=== PATIENT | female | born 1940 | race Hispanic/Latino ===

== ENCOUNTER 2017-07-18 16:33 | Inpatient (IN) | payer OTHER, MEDICARE ==
[~2017-07-18] VITALS: Ht 157.5 cm; Wt 64.9 kg
[2017-07-18] VITALS (7 sets, daily range): BP systolic 63–173; BP diastolic 38–60
[~2017-07-18 16:33] MED LIST: APIX5TAB PO; ASPI-1005 PO; CA C1TAB93 PO; CARV25TA PO; DIGO125T87 PO; DULO30CA51 PO; FERR-82 PO; FURO20TA4 PO; LEVO50TA11 PO; METF500T6 PO; METO5TAB2 PO; MONT10TA24 PO; MULT-1203 PO; OXYB5TAB PO; PANT40TA25 PO; PRAV40TA3 PO; PREG50 PO; ROCURONIUM BROMIDE 10MG/1ML 5ML VL IV ONE; SACU1TAB PO; TRAM-355 PO
[2017-07-18 17:03] LABS: BASOPHILS % (AUTO) 0.5 % (0.0-5.0); EOSINOPHILS % (AUTO) 3.8 % (0.0-8.0); HEMATOCRIT 34.6 % (36-48); LYMPHOCYTES % (AUTO) 23.5 % (21.0-51.0); MEAN CORPUSCULAR HEMOGLOBIN 29.4 pg (27.0-33.0); MEAN CORPUSCULAR VOLUME 91.9 fL (79-99); MONOCYTES % (AUTO) 5.3 % (3.0-13.0); NEUTROPHILS % (AUTO) 66.9 % (40.0-77.0); PLATELET COUNT (AUTO) 310 K/uL (130-400); RED BLOOD CELL COUNT(AUTO) 3.77 MIL/uL (4.00-5.50); RED CELL DISTRIBUTION WIDTH 14.3 % (11.0-15.5); WHITE BLOOD COUNT (AUTO) 17.3 K/uL (4.8-10.8)
[2017-07-18] MEDS ORDERED: ACETAMINOPHEN 650 MG SUPPOSITORY RC ONE (17:03)
[2017-07-18] MEDS ORDERED: CEFTRIAXONE SODIUM 1 GM ONE (17:03)
[2017-07-18] MEDS ORDERED: PROPOFOL 1000 MG/100 ML 100 ML IV ONE (17:12)
[2017-07-18 17:13] LABS: CARBON DIOXIDE 30 mmol/L (21-32); CHLORIDE 99 mmol/L (101-111); CREATININE 1.5 mg/dL (0.5-1.5); GLOMERULAR FILTR. RATE CALC 36 mL/min (>60); GLUCOSE,RANDOM 224 mg/dL (70-105); POTASSIUM 5.2 mmol/L (3.5-5.1); SODIUM SERUM 137 mmol/L (136-145); UREA NITROGEN, BLOOD 26 mg/dL (7-18)
[2017-07-18 17:26] LABS: ALANINE AMINOTRANSFERASE 31 U/L (12-78); ALBUMIN 3.2 g/dL (3.5-5.0); ASPARTATE AMINOTRANSFERASE 27 U/L (10-37); BILIRUBIN,TOTAL 0.3 mg/dL (0.2-1.0); CREATINE KINASE MB < 0.5 ng/mL (0.5-3.6); CREATINE KINASE, TOTAL 60 U/L (21-232); TOTAL PROTEIN, SERUM 7.7 g/dL (6.0-8.3)
[2017-07-18 17:29] LABS: B-TYPE NATRIURETIC PEPTIDE 441 pg/mL (0-100)
[2017-07-18] MEDS ORDERED: NOREPINEPHRINE BITARTRATE 1 MG/1 ML ML IV ONE ×2 (17:36→23:47)
[2017-07-18 17:38] LABS: ABG BASE EXCESS -1.6 mmol/L (-2.0-3.0); ABG HCO3 24.9 mmol/L (21.0-28.0); ABG OXYGEN SATURATION 99.9 % (95.0-99.0); ABG PCO2 48 mmHg (32-45)
[2017-07-18] MEDS ORDERED: AZITHROMYCIN 500MG+NS 250ML 250 ML IV ONE (17:46)
[2017-07-18] MEDS ORDERED: FENTANYL CITRATE PF 50 MCG/1 ML 5ML AMP IV ONE (18:16)
[2017-07-18] MEDS ORDERED: FENTANYL CITRATE PF 50 MCG/1 ML 2ML VIAL ONE (18:19)
[2017-07-18 18:49] LABS: APPEARANCE,URINE Cloudy (CLEAR); BILIRUBIN,URINE Negative (NEGATIVE); COLOR,URINE Yellow (YELLOW); GLUCOSE, URINE (UA) Negative (NEGATIVE); KETONES,URINE Negative (NEGATIVE); LEUKOCYTE ESTERASE ,URINE Moderate (NEGATIVE); NITRATE,URINE Negative (NEGATIVE); OCCULT BLOOD,URINE Large (NEGATIVE); PROTEIN,URINE POS 1+ (NEGATIVE); UROBILINOGEN,URINE 0.2 mg/dL (0.2-1.0)
[2017-07-18 18:58] LABS: BACTERIA,URINE Many /HPF (None Seen)
[2017-07-18 18:59] LABS: HYALINE CASTS, URINE 0-1 /LPF (0-1 /LPF)
[2017-07-18] MEDS ORDERED: FENTANYL 2500MCG+NS 250ML 250 ML IV SCH (19:15)
[2017-07-18 19:41] LABS: ABG BASE EXCESS -7.2 mmol/L (-2.0-3.0); ABG HCO3 18.7 mmol/L (21.0-28.0); ABG OXYGEN SATURATION 99.1 % (95.0-99.0); ABG PCO2 39 mmHg (32-45)
[2017-07-18] MEDS ORDERED: ONDANSETRON HCL 4 MG/2 ML VIAL IVP PRN (21:00)
[2017-07-18] MEDS ORDERED: ACETAMINOPHEN 325 MG TAB PO PRN (21:00)
[2017-07-18] MEDS ORDERED: VANCOMYCIN PROTOCOL PER PHARMACY IV SCH (21:00)
[2017-07-18] MEDS ORDERED: NOREPINEPHRINE 4MG/NS 250ML 250 ML IV SCH (21:15)
[2017-07-18] MEDS ORDERED: COMPOUND IV REFRIGERATED 1 EACH IVSOLN MISC PRN (21:15)
[2017-07-18] MEDS ORDERED: GLUCAGON 1MG KIT 1 MG ML IM PRN (21:30)
[2017-07-18] MEDS ORDERED: LIDOCAINE HCL-MPF 1% 2ML VIAL IJ PRN (21:30)
[2017-07-18] MEDS ORDERED: DEXTROSE 50%-WATER 50 ML DISP.SYRIN IV PRN (21:30)
[2017-07-18] MEDS ORDERED: VANCOMYCIN 1GM+NS 250ML 250 ML IV ONE (21:58)
[2017-07-18] MEDS ORDERED: SODIUM BICARB 50MEQ 50ML VIAL ONE (21:58)
[2017-07-18] MEDS ORDERED: SODIUM CHLORIDE 0.9% 1000ML 1,000 ML IV ONE (21:59)
[2017-07-18] MEDS ORDERED: PHENTOLAMINE MESYLATE 5 MG VIAL SQ ONE (22:00)
[2017-07-18] MEDS ORDERED: SODIUM CHLORIDE 0.9% 10 ML VIAL ONE (23:40)
[2017-07-18] MEDS ORDERED: SODIUM CHLORIDE 0.9% 250 ML IV ONE (23:48)
[2017-07-18] MEDS: ZOSYN 3.375GM+NS 50ML 50 ML IV SCH (23:52)
[2017-07-19] VITALS (24 sets, daily range): BP systolic 94–142; BP diastolic 30–64
[2017-07-19] MEDS: INSULIN R NPO SSI SQ SCH ×5 (00:21→23:26)
[2017-07-19 00:33] LABS: ABG BASE EXCESS -4.3 mmol/L (-2.0-3.0); ABG HCO3 21.8 mmol/L (21.0-28.0); ABG OXYGEN SATURATION 99.2 % (95.0-99.0); ABG PCO2 44 mmHg (32-45)
[2017-07-19] MEDS: IPRATROPIUM/ALBUTEROL SULFATE 3 ML SOLUTION IH SCH ×4 (00:43→18:31)
[2017-07-19] MEDS ORDERED: VANCOMYCIN 1.5 GM in SODIUM CHLORIDE 0.9% 250 ML IV ONE (01:00)
[2017-07-19 01:17] LABS: TROPONIN I 5.08 ng/mL (0.00-0.06)
[2017-07-19] MEDS ORDERED: SODIUM CHLORIDE 0.9% 1000ML 1,000 ML IV ONE (03:17)
[2017-07-19] MEDS: SODIUM CHLORIDE 0.9% 1000ML 1,000 ML IV SCH ×3 (03:45→18:17)
[2017-07-19] MEDS: ZOSYN 3.375GM+NS 50ML 50 ML IV SCH ×3 (04:36→20:19)
[2017-07-19 04:43] LABS: ABG BASE EXCESS -4.4 mmol/L (-2.0-3.0); ABG HCO3 20.4 mmol/L (21.0-28.0); ABG OXYGEN SATURATION 97.6 % (95.0-99.0); ABG PCO2 37 mmHg (32-45)
[2017-07-19 04:50] LABS: HEMATOCRIT 28.6 % (36-48); MEAN CORPUSCULAR HEMOGLOBIN 29.2 pg (27.0-33.0); MEAN CORPUSCULAR HGB CONC 32.7 g/dL (32.0-36.0); MEAN CORPUSCULAR VOLUME 89.2 fL (79-99); PLATELET COUNT (AUTO) 214 K/uL (130-400); RED BLOOD CELL COUNT(AUTO) 3.21 MIL/uL (4.00-5.50); RED CELL DISTRIBUTION WIDTH 14.4 % (11.0-15.5); WHITE BLOOD COUNT (AUTO) 21.5 K/uL (4.8-10.8)
[2017-07-19 05:00] LABS: BAND NEUTROPHILS % (MANUAL) 24 % (0-2); LYMPHOCYTES % (MANUAL) 15 % (22-44); MAN.DIFF COMMENT-IMPRESSION MANUAL DIFFERENTIAL; MONOCYTES % (MANUAL) 9 % (2-9); SEGMENTED NEUTROPHILS % 52 % (40-70)
[2017-07-19 05:01] LABS: PLATELET MORPHOLOGY COMMENT ADEQUATE
[2017-07-19 05:19] LABS: ALBUMIN 2.2 g/dL (3.5-5.0); BILIRUBIN,TOTAL 0.4 mg/dL (0.2-1.0); CREATINE KINASE MB 4.4 ng/mL (0.5-3.6); CREATININE 1.6 mg/dL (0.5-1.5); POTASSIUM 5.1 mmol/L (3.5-5.1); THYROID STIMULATING HORMONE 1.58 uIU/mL (0.36-3.74); TOTAL PROTEIN, SERUM 5.6 g/dL (6.0-8.3)
[2017-07-19 05:23] LABS: TROPONIN I 5.53 ng/mL (0.00-0.06)
[2017-07-19 06:06] LABS: B-TYPE NATRIURETIC PEPTIDE 993 pg/mL (0-100)
[2017-07-19] MEDS ORDERED: COMPOUND PO MISCELLANEOUS 1 EACH MISC MISC PRN (08:00)
[2017-07-19] MEDS ORDERED: CLOPIDOGREL BISULFATE 300 MG TAB PO SCH (08:30)
[2017-07-19] MEDS ORDERED: OSELTAMIVIR PHOSPHATE 75 MG CAP PO SCH (09:00)
[2017-07-19] MEDS ORDERED: ASPIRIN 325MG EC TAB 325 MG TABLET.DR PO SCH (09:00)
[2017-07-19] MEDS ORDERED: ENOXAPARIN SODIUM 30 MG/0.3 ML SQ SCH (09:00)
[2017-07-19] MEDS: FUROSEMIDE 10 MG/ML 2ML VIAL IV SCH ×2 (09:06→20:18)
[2017-07-19] MEDS: FAMOTIDINE/PF 20 MG/2 ML VIAL IV SCH (09:08)
[2017-07-19] MEDS: ENOXAPARIN SODIUM 80 MG/0.8 ML SQ SCH (09:15)
[2017-07-19] MEDS: PROPOFOL 1000 MG/100 ML 100 ML IV PRN ×2 (12:56→22:54)
[2017-07-19 13:01] LABS: INR 1.12 (0.85-1.15); PARTIAL THROMBOPLASTIN TIME 39.8 SEC (26.3-35.5); PROTHROMBIN TIME 11.7 SEC (9.6-11.6)
[2017-07-19 13:03] LABS: CREATINE KINASE MB 3.4 ng/mL (0.5-3.6)
[2017-07-19 13:06] LABS: TROPONIN I 4.72 ng/mL (0.00-0.06)
[2017-07-19] MEDS: ASPIRIN 81MG TAB.CHEW NG SCH (14:43)
[2017-07-19] MEDS: OSELTAMIVIR PHOSPHATE 300 MG, COMPOUNDING VEHICLE SF NO.9 50 ML PO SCH ×4 (14:43→20:20)
[2017-07-19] MEDS: VANCOMYCIN 750MG + NS 250 ML IV SCH ×2 (19:19)
[2017-07-20] VITALS (24 sets, daily range): BP systolic 111–174; BP diastolic 30–80
[2017-07-20] MEDS: IPRATROPIUM/ALBUTEROL SULFATE 3 ML SOLUTION IH SCH ×5 (00:42→23:37)
[2017-07-20] MEDS: SODIUM CHLORIDE 0.9% 1000ML 1,000 ML IV SCH (04:06)
[2017-07-20] MEDS: ZOSYN 3.375GM+NS 50ML 50 ML IV SCH ×3 (04:07→20:31)
[2017-07-20 04:08] LABS: MEAN CORPUSCULAR HEMOGLOBIN 29.8 pg (27.0-33.0); MEAN CORPUSCULAR HGB CONC 33.5 g/dL (32.0-36.0); MEAN CORPUSCULAR VOLUME 89.2 fL (79-99); NUCLEATED RED BLOOD CELLS 0.1 % (0.0-0.19); PLATELET COUNT (AUTO) 171 K/uL (130-400); RED CELL DISTRIBUTION WIDTH 14.7 % (11.0-15.5)
[2017-07-20 04:20] LABS: CREATININE 1.7 mg/dL (0.5-1.5); POTASSIUM 3.6 mmol/L (3.5-5.1)
[2017-07-20 04:39] LABS: B-TYPE NATRIURETIC PEPTIDE 411 pg/mL (0-100)
[2017-07-20 05:42] LABS: ABG BASE EXCESS -1.9 mmol/L (-2.0-3.0); ABG HCO3 22.5 mmol/L (21.0-28.0); ABG OXYGEN SATURATION 98.3 % (95.0-99.0); ABG PCO2 38 mmHg (32-45)
[2017-07-20] MEDS: INSULIN R NPO SSI SQ SCH ×4 (05:44→23:50)
[2017-07-20] MEDS ORDERED: CLOPIDOGREL BISULFATE 75 MG TAB PO SCH (09:00)
[2017-07-20] MEDS: FAMOTIDINE/PF 20 MG/2 ML VIAL IV SCH (09:18)
[2017-07-20] MEDS: ASPIRIN 81MG TAB.CHEW NG SCH (09:18)
[2017-07-20] MEDS: FUROSEMIDE 10 MG/ML 2ML VIAL IV SCH ×2 (09:18→20:30)
[2017-07-20] MEDS: ENOXAPARIN SODIUM 80 MG/0.8 ML SQ SCH (09:20)
[2017-07-20] MEDS: OSELTAMIVIR PHOSPHATE 300 MG, COMPOUNDING VEHICLE SF NO.9 50 ML PO SCH ×4 (09:25→21:02)
[2017-07-20] MEDS: PROPOFOL 1000 MG/100 ML 100 ML IV PRN ×3 (10:47→23:32)
[2017-07-20] MEDS: LEVOFLOXACIN 500 MG/D5W 100 ML 100 ML IV SCH (17:19)
[2017-07-20] MEDS: VANCOMYCIN 750MG + NS 250 ML IV SCH ×2 (17:19)
[2017-07-20] MEDS: POTASSIUM CHLORIDE 20MEQ/100ML 100 ML IV PRN (17:36)
[2017-07-21] VITALS (22 sets, daily range): BP systolic 133–194; BP diastolic 48–86
[2017-07-21] MEDS: PROPOFOL 1000 MG/100 ML 100 ML IV PRN ×2 (03:57→11:16)
[2017-07-21 04:14] LABS: MEAN CORPUSCULAR HEMOGLOBIN 29.4 pg (27.0-33.0); MEAN CORPUSCULAR HGB CONC 33.5 g/dL (32.0-36.0); MEAN CORPUSCULAR VOLUME 87.7 fL (79-99); PLATELET COUNT (AUTO) 194 K/uL (130-400); RED BLOOD CELL COUNT(AUTO) 3.08 MIL/uL (4.00-5.50); RED CELL DISTRIBUTION WIDTH 14.3 % (11.0-15.5); WHITE BLOOD COUNT (AUTO) 7.8 K/uL (4.8-10.8)
[2017-07-21] MEDS: ZOSYN 3.375GM+NS 50ML 50 ML IV SCH ×3 (05:02→21:59)
[2017-07-21 05:11] LABS: CREATININE 1.4 mg/dL (0.5-1.5); POTASSIUM 3.4 mmol/L (3.5-5.1)
[2017-07-21] MEDS ORDERED: FUROSEMIDE 10 MG/ML 4ML VIAL IV ONE ×2 (06:00→21:00)
[2017-07-21] MEDS: INSULIN R NPO SSI SQ SCH ×3 (06:00→18:00)
[2017-07-21] MEDS: IPRATROPIUM/ALBUTEROL SULFATE 3 ML SOLUTION IH SCH ×3 (07:15→19:17)
[2017-07-21] MEDS: ASPIRIN 81MG TAB.CHEW NG SCH (08:14)
[2017-07-21] MEDS: FAMOTIDINE/PF 20 MG/2 ML VIAL IV SCH (08:14)
[2017-07-21] MEDS: FUROSEMIDE 10 MG/ML 2ML VIAL IV SCH ×2 (08:14→18:46)
[2017-07-21] MEDS: ENOXAPARIN SODIUM 80 MG/0.8 ML SQ SCH (08:16)
[2017-07-21] MEDS: OSELTAMIVIR PHOSPHATE 300 MG, COMPOUNDING VEHICLE SF NO.9 50 ML PO SCH ×4 (09:00→21:00)
[2017-07-21] MEDS: LEVOFLOXACIN 500 MG/D5W 100 ML 100 ML IV SCH (19:05)
[2017-07-21] MEDS: VANCOMYCIN 750MG + NS 250 ML IV SCH ×2 (19:07)
[2017-07-22] VITALS (24 sets, daily range): BP systolic 108–196; BP diastolic 45–78
[2017-07-22] MEDS: IPRATROPIUM/ALBUTEROL SULFATE 3 ML SOLUTION IH SCH ×4 (01:05→18:09)
[2017-07-22 03:55] LABS: HEMATOCRIT 26.6 % (36-48); MEAN CORPUSCULAR HGB CONC 35.7 g/dL (32.0-36.0); MEAN CORPUSCULAR VOLUME 86.8 fL (79-99); PLATELET COUNT (AUTO) 188 K/uL (130-400); RED BLOOD CELL COUNT(AUTO) 3.07 MIL/uL (4.00-5.50); RED CELL DISTRIBUTION WIDTH 14.2 % (11.0-15.5); WHITE BLOOD COUNT (AUTO) 5.8 K/uL (4.8-10.8)
[2017-07-22 04:03] LABS: CREATININE 1.3 mg/dL (0.5-1.5)
[2017-07-22 04:09] LABS: POTASSIUM 2.9 mmol/L (3.5-5.1)
[2017-07-22] MEDS: POTASSIUM CHLORIDE 20MEQ/100ML 100 ML IV PRN ×4 (04:34→20:10)
[2017-07-22] MEDS: INSULIN R NPO SSI SQ SCH ×4 (06:00→18:00)
[2017-07-22] MEDS: ZOSYN 3.375GM+NS 50ML 50 ML IV SCH ×3 (06:01→20:11)
[2017-07-22] MEDS: FUROSEMIDE 10 MG/ML 2ML VIAL IV SCH ×2 (08:13→20:10)
[2017-07-22] MEDS: FAMOTIDINE/PF 20 MG/2 ML VIAL IV SCH (08:13)
[2017-07-22] MEDS: LEVOTHYROXINE 50 MCG TABLET PO SCH (08:13)
[2017-07-22] MEDS: ASPIRIN 81MG TAB.CHEW NG SCH (08:17)
[2017-07-22] MEDS: CARVEDILOL 12.5 MG TABLET PO SCH ×2 (08:17→20:11)
[2017-07-22] MEDS: OSELTAMIVIR PHOSPHATE 300 MG, COMPOUNDING VEHICLE SF NO.9 50 ML PO SCH ×4 (08:18→20:12)
[2017-07-22] MEDS: ENOXAPARIN SODIUM 40 MG/0.4 ML SYRINGE SQ SCH (08:20)
[2017-07-22] MEDS: HYDRALAZINE HCL 20 MG/ML VIAL IV PRN (09:37)
[2017-07-22] MEDS: PROPOFOL 1000 MG/100 ML 100 ML IV PRN ×3 (13:52→22:31)
[2017-07-22] MEDS: LEVOFLOXACIN 500 MG/D5W 100 ML 100 ML IV SCH (16:53)
[2017-07-22] MEDS: VANCOMYCIN 750MG + NS 250 ML IV SCH ×2 (18:38)
[2017-07-23] VITALS (24 sets, daily range): BP systolic 125–192; BP diastolic 23–89
[2017-07-23] MEDS: IPRATROPIUM/ALBUTEROL SULFATE 3 ML SOLUTION IH SCH ×5 (00:24→23:42)
[2017-07-23 04:03] LABS: HEMATOCRIT 27.3 % (36-48); MEAN CORPUSCULAR HEMOGLOBIN 29.2 pg (27.0-33.0); MEAN CORPUSCULAR HGB CONC 33.7 g/dL (32.0-36.0); MEAN CORPUSCULAR VOLUME 86.6 fL (79-99); PLATELET COUNT (AUTO) 198 K/uL (130-400); RED BLOOD CELL COUNT(AUTO) 3.15 MIL/uL (4.00-5.50); RED CELL DISTRIBUTION WIDTH 14.1 % (11.0-15.5); WHITE BLOOD COUNT (AUTO) 7.3 K/uL (4.8-10.8)
[2017-07-23 04:14] LABS: CREATININE 1.3 mg/dL (0.5-1.5); POTASSIUM 3.4 mmol/L (3.5-5.1)
[2017-07-23] MEDS: ZOSYN 3.375GM+NS 50ML 50 ML IV SCH ×3 (04:58→20:15)
[2017-07-23] MEDS: POTASSIUM CHLORIDE 20MEQ/100ML 100 ML IV PRN (04:58)
[2017-07-23] MEDS: PROPOFOL 1000 MG/100 ML 100 ML IV PRN (05:07)
[2017-07-23] MEDS: INSULIN R NPO SSI SQ SCH ×4 (06:00→18:00)
[2017-07-23] MEDS: ENOXAPARIN SODIUM 40 MG/0.4 ML SYRINGE SQ SCH (08:15)
[2017-07-23] MEDS: FUROSEMIDE 10 MG/ML 2ML VIAL IV SCH ×2 (08:15→20:15)
[2017-07-23] MEDS: ASPIRIN 81MG TAB.CHEW NG SCH (08:16)
[2017-07-23] MEDS: LEVOTHYROXINE 50 MCG TABLET PO SCH (08:16)
[2017-07-23] MEDS: FAMOTIDINE/PF 20 MG/2 ML VIAL IV SCH (08:16)
[2017-07-23] MEDS: CARVEDILOL 12.5 MG TABLET PO SCH ×2 (08:16→20:14)
[2017-07-23] MEDS: POTASSIUM CHLORIDE 10% ELIXIR 20 MEQ/15 ML UDCUP PO PRN (11:27)
[2017-07-23 11:48] LABS: ABG BASE EXCESS 2.7 mmol/L (-2.0-3.0); ABG HCO3 26.2 mmol/L (21.0-28.0); ABG OXYGEN SATURATION 98.2 % (95.0-99.0); ABG PCO2 37 mmHg (32-45)
[2017-07-23] MEDS: LEVOFLOXACIN 500 MG/D5W 100 ML 100 ML IV SCH (16:05)
[2017-07-23] MEDS: OSELTAMIVIR PHOSPHATE 300 MG, COMPOUNDING VEHICLE SF NO.9 50 ML PO SCH ×2 (16:13)
[2017-07-23] MEDS: VANCOMYCIN 750MG + NS 250 ML IV SCH ×2 (17:42)
[2017-07-23] MEDS: HYDRALAZINE HCL 20 MG/ML VIAL IV PRN (18:13)
[2017-07-23] MEDS: OSELTAMIVIR PHOSPHATE 75 MG CAP PO SCH (20:29)
[2017-07-24] VITALS (19 sets, daily range): BP systolic 121–172; BP diastolic 54–92
[2017-07-24] MEDS: ZOSYN 3.375GM+NS 50ML 50 ML IV SCH ×3 (04:50→22:22)
[2017-07-24] MEDS: INSULIN R NPO SSI SQ SCH ×4 (05:14→18:00)
[2017-07-24 05:19] LABS: HEMATOCRIT 28.7 % (36-48); MEAN CORPUSCULAR HEMOGLOBIN 29.9 pg (27.0-33.0); MEAN CORPUSCULAR HGB CONC 34.5 g/dL (32.0-36.0); MEAN CORPUSCULAR VOLUME 86.7 fL (79-99); PLATELET COUNT (AUTO) 217 K/uL (130-400); RED BLOOD CELL COUNT(AUTO) 3.31 MIL/uL (4.00-5.50); WHITE BLOOD COUNT (AUTO) 8.9 K/uL (4.8-10.8)
[2017-07-24 05:36] LABS: CREATININE 1.4 mg/dL (0.5-1.5); POTASSIUM 3.2 mmol/L (3.5-5.1)
[2017-07-24 05:43] LABS: BAND NEUTROPHILS % (MANUAL) 1 % (0-2); BASOPHILS % (MANUAL) 1 % (0-2); EOSINOPHILS % (MANUAL) 2 % (1-6); LYMPHOCYTES % (MANUAL) 14 % (22-44); MAN.DIFF COMMENT-IMPRESSION MANUAL DIFFERENTIAL; MONOCYTES % (MANUAL) 3 % (2-9); PLATELET MORPHOLOGY COMMENT ADEQUATE; SEGMENTED NEUTROPHILS % 79 % (40-70)
[2017-07-24] MEDS: IPRATROPIUM/ALBUTEROL SULFATE 3 ML SOLUTION IH SCH ×3 (05:56→19:46)
[2017-07-24] MEDS: ENOXAPARIN SODIUM 40 MG/0.4 ML SYRINGE SQ SCH (08:19)
[2017-07-24] MEDS: FUROSEMIDE 20 MG TABLET PO SCH ×2 (08:19→16:42)
[2017-07-24] MEDS: ASPIRIN 81MG TAB.CHEW NG SCH (08:19)
[2017-07-24] MEDS: LEVOTHYROXINE 50 MCG TABLET PO SCH (08:19)
[2017-07-24] MEDS: POTASSIUM CHLORIDE 10% ELIXIR 20 MEQ/15 ML UDCUP PO PRN ×2 (08:22→10:37)
[2017-07-24] MEDS: FAMOTIDINE/PF 20 MG/2 ML VIAL IV SCH (09:28)
[2017-07-24] MEDS: CARVEDILOL 12.5 MG TABLET PO SCH ×2 (10:52→22:14)
[2017-07-24] MEDS: LEVOFLOXACIN 500 MG/D5W 100 ML 100 ML IV SCH (16:42)
[2017-07-24] MEDS: VANCOMYCIN 750MG + NS 250 ML IV SCH ×2 (18:46)
[2017-07-24] MEDS: ACETYLCYSTEINE 20% 200MG/ML 4ML VIAL IH SCH (19:46)
[2017-07-24] MEDS: OSELTAMIVIR PHOSPHATE 75 MG CAP PO SCH (22:13)
[2017-07-25] MEDS: ACETYLCYSTEINE 20% 200MG/ML 4ML VIAL IH SCH ×4 (00:16→19:10)
[2017-07-25] MEDS: IPRATROPIUM/ALBUTEROL SULFATE 3 ML SOLUTION IH SCH ×5 (00:16→23:14)
[2017-07-25 03:56] VITALS: BP 142/58
[2017-07-25 05:09] LABS: HEMATOCRIT 28.1 % (36-48); MEAN CORPUSCULAR HEMOGLOBIN 29.4 pg (27.0-33.0); MEAN CORPUSCULAR HGB CONC 33.9 g/dL (32.0-36.0); MEAN CORPUSCULAR VOLUME 86.8 fL (79-99); NUCLEATED RED BLOOD CELLS 0.1 % (0.0-0.19); PLATELET COUNT (AUTO) 215 K/uL (130-400); RED BLOOD CELL COUNT(AUTO) 3.24 MIL/uL (4.00-5.50); RED CELL DISTRIBUTION WIDTH 13.8 % (11.0-15.5); WHITE BLOOD COUNT (AUTO) 8.4 K/uL (4.8-10.8)
[2017-07-25] MEDS: ZOSYN 3.375GM+NS 50ML 50 ML IV SCH (05:12)
[2017-07-25 05:44] LABS: CREATININE 1.4 mg/dL (0.5-1.5); POTASSIUM 3.4 mmol/L (3.5-5.1)
[2017-07-25] MEDS: INSULIN R NPO SSI SQ SCH ×4 (06:00→18:00)
[2017-07-25] MEDS: POTASSIUM CHLORIDE 20MEQ/100ML 100 ML IV PRN (06:40)
[2017-07-25 07:35] VITALS: BP 162/70
[2017-07-25] MEDS: LEVOTHYROXINE 50 MCG TABLET PO SCH ×2 (08:13→20:05)
[2017-07-25] MEDS ORDERED: CEFTRIAXONE 1GM/D5W 50ML 50 ML IV SCH (08:45)
[2017-07-25] MEDS: FAMOTIDINE/PF 20 MG/2 ML VIAL IV SCH (09:33)
[2017-07-25] MEDS: CEFTRIAXONE SODIUM 1 GM IVP SCH (09:34)
[2017-07-25] MEDS: CARVEDILOL 12.5 MG TABLET PO SCH ×2 (09:36→20:04)
[2017-07-25] MEDS: ENOXAPARIN SODIUM 40 MG/0.4 ML SYRINGE SQ SCH (09:37)
[2017-07-25] MEDS: FUROSEMIDE 20 MG TABLET PO SCH ×2 (09:37→16:21)
[2017-07-25] MEDS: ASPIRIN 81MG TAB.CHEW NG SCH (09:37)
[2017-07-25 11:50] VITALS: BP 177/73
[2017-07-25] MEDS: LEVOFLOXACIN 500 MG/D5W 100 ML 100 ML IV SCH (16:20)
[2017-07-25 16:50] VITALS: BP 178/82
[2017-07-25 19:56] VITALS: BP 171/76
[2017-07-25 23:49] VITALS: BP 151/64
[2017-07-26] VITALS (7 sets, daily range): BP systolic 140–164; BP diastolic 65–77
[2017-07-26 04:44] LABS: HEMATOCRIT 27.4 % (36-48); MEAN CORPUSCULAR HEMOGLOBIN 30.1 pg (27.0-33.0); MEAN CORPUSCULAR HGB CONC 34.3 g/dL (32.0-36.0); MEAN CORPUSCULAR VOLUME 87.9 fL (79-99); NUCLEATED RED BLOOD CELLS 0.1 % (0.0-0.19); PLATELET COUNT (AUTO) 240 K/uL (130-400); RED BLOOD CELL COUNT(AUTO) 3.11 MIL/uL (4.00-5.50); RED CELL DISTRIBUTION WIDTH 14.1 % (11.0-15.5)
[2017-07-26 04:55] LABS: CREATININE 1.3 mg/dL (0.5-1.5); POTASSIUM 3.8 mmol/L (3.5-5.1)
[2017-07-26] MEDS: INSULIN R NPO SSI SQ SCH ×4 (06:00→18:00)
[2017-07-26] MEDS: IPRATROPIUM/ALBUTEROL SULFATE 3 ML SOLUTION IH SCH ×4 (07:38→23:44)
[2017-07-26] MEDS ORDERED: DEXTROSE 5 %-0.45 % NACL 1,000 ML IV SCH (08:03)
[2017-07-26] MEDS: CEFTRIAXONE SODIUM 1 GM IVP SCH (08:26)
[2017-07-26] MEDS: FAMOTIDINE/PF 20 MG/2 ML VIAL IV SCH (08:26)
[2017-07-26] MEDS ORDERED: LIDOCAINE HCL 2% VISCOUS 15 ML UDCUP PO SCH (09:00)
[2017-07-26] MEDS ORDERED: LIDOCAINE HCL 2% VISCOUS 15 ML UDCUP ONE (11:14)
[2017-07-26] MEDS ORDERED: DIATR MEGLU/DIATRIZOATE SODIUM 30 ML BOTTLE PO ONE (13:54)
[2017-07-26] MEDS: CARVEDILOL 25 MG TABLET PO SCH ×2 (14:19→19:53)
[2017-07-26] MEDS: ASPIRIN 81MG TAB.CHEW NG SCH (14:19)
[2017-07-26] MEDS: FUROSEMIDE 20 MG TABLET PO SCH ×2 (14:20→16:33)
[2017-07-26] MEDS: ENOXAPARIN SODIUM 40 MG/0.4 ML SYRINGE SQ SCH (14:21)
[2017-07-26] MEDS: LEVOFLOXACIN 500 MG/D5W 100 ML 100 ML IV SCH (16:33)
[2017-07-27 03:44] VITALS: BP 162/69
[2017-07-27 04:35] LABS: HEMATOCRIT 27.5 % (36-48); MEAN CORPUSCULAR HEMOGLOBIN 29.1 pg (27.0-33.0); MEAN CORPUSCULAR HGB CONC 33.2 g/dL (32.0-36.0); MEAN CORPUSCULAR VOLUME 87.5 fL (79-99); NUCLEATED RED BLOOD CELLS 0.1 % (0.0-0.19); PLATELET COUNT (AUTO) 277 K/uL (130-400); RED BLOOD CELL COUNT(AUTO) 3.15 MIL/uL (4.00-5.50); RED CELL DISTRIBUTION WIDTH 14.1 % (11.0-15.5); WHITE BLOOD COUNT (AUTO) 7.9 K/uL (4.8-10.8)
[2017-07-27 04:56] LABS: CREATININE 1.3 mg/dL (0.5-1.5)
[2017-07-27] MEDS: POTASSIUM CHLORIDE 20MEQ/100ML 100 ML IV PRN ×2 (05:18→11:19)
[2017-07-27] MEDS: POTASSIUM CHLORIDE 10% ELIXIR 20 MEQ/15 ML UDCUP PO PRN ×3 (05:18→14:29)
[2017-07-27] MEDS: LEVOTHYROXINE 50 MCG TABLET PO SCH (05:39)
[2017-07-27] MEDS: INSULIN R NPO SSI SQ SCH ×5 (05:50→23:59)
[2017-07-27] MEDS: IPRATROPIUM/ALBUTEROL SULFATE 3 ML SOLUTION IH SCH ×4 (06:17→23:15)
[2017-07-27 07:55] VITALS: BP 153/57
[2017-07-27] MEDS ORDERED: DEXTROSE 5%-WATER 1,000 ML IV SCH (08:52)
[2017-07-27] MEDS: POTASSIUM CHLORIDE 20 MEQ ERTAB PO PRN ×2 (11:18→14:30)
[2017-07-27] MEDS: ASPIRIN 81MG TAB.CHEW NG SCH (11:18)
[2017-07-27] MEDS: LEVOFLOXACIN 500 MG/D5W 100 ML 100 ML IV SCH (11:19)
[2017-07-27] MEDS: FUROSEMIDE 20 MG TABLET PO SCH ×2 (11:19→17:04)
[2017-07-27] MEDS: FAMOTIDINE/PF 20 MG/2 ML VIAL IV SCH (11:19)
[2017-07-27] MEDS: CARVEDILOL 25 MG TABLET PO SCH ×2 (11:20→21:45)
[2017-07-27] MEDS: ENOXAPARIN SODIUM 40 MG/0.4 ML SYRINGE SQ SCH (11:20)
[2017-07-27] MEDS: CEFTRIAXONE SODIUM 1 GM IVP SCH (11:20)
[2017-07-27 11:24] VITALS: BP 142/64
[2017-07-27 16:23] VITALS: BP 151/70
[2017-07-27 20:00] VITALS: BP 159/62
[2017-07-28] VITALS: BP 135/60
[2017-07-28 03:57] VITALS: BP 147/62
[2017-07-28] MEDS: INSULIN R NPO SSI SQ SCH (05:33)
[2017-07-28] MEDS: LEVOTHYROXINE 50 MCG TABLET PO SCH (06:02)
[2017-07-28 06:14] LABS: CREATININE 1.1 mg/dL (0.5-1.5)
[2017-07-28] MEDS: IPRATROPIUM/ALBUTEROL SULFATE 3 ML SOLUTION IH SCH ×2 (06:21→11:23)
[2017-07-28 07:20] VITALS: BP 144/62
[2017-07-28] MEDS: FUROSEMIDE 20 MG TABLET PO SCH (10:22)
[2017-07-28] MEDS: ASPIRIN 81MG TAB.CHEW NG SCH (10:22)
[2017-07-28 10:23] VITALS: BP 144/62
[2017-07-28] MEDS: CARVEDILOL 25 MG TABLET PO SCH (10:23)
[2017-07-28] MEDS: FAMOTIDINE/PF 20 MG/2 ML VIAL IV SCH (10:23)
[2017-07-28] MEDS: CEFTRIAXONE SODIUM 1 GM IVP SCH (10:25)
[2017-07-28] MEDS: ENOXAPARIN SODIUM 40 MG/0.4 ML SYRINGE SQ SCH (10:25)
== END 2017-07-28 12:45 | DRG 870 ==
LOC: EDH 16:33 → EDHIP 18:02 → 2BH 19:49 → 2DH 07-24 17:04
PROVIDERS: ADMIT Internal Medicine; ATTEND Internal Medicine
PROC: 5A1955Z Respiratory Ventilation, Greater than 96 Consecutive Hours (ICD-10-PCS; principal; 2017-07-18)
PROC: 0BH17EZ Insertion of Endotracheal Airway into Trachea, Via Natural or Artificial Opening (ICD-10-PCS; 2017-07-18)
PROC: 02HV33Z Insertion of Infusion Device into Superior Vena Cava, Percutaneous Approach (ICD-10-PCS; 2017-07-19)
DX: A41.9 Sepsis, unspecified organism (principal); J96.21 Acute and chronic respiratory failure with hypoxia; I21.4 Non-ST elevation (NSTEMI) myocardial infarction; R65.21 Severe sepsis with septic shock; I50.43 Acute on chronic combined systolic (congestive) and diastolic (congestive) heart failure; J18.9 Pneumonia, unspecified organism; N17.9 Acute kidney failure, unspecified; I13.0 Hypertensive heart and chronic kidney disease with heart failure and stage 1 through stage 4 chronic kidney disease, or unspecified chronic kidney disease; E87.5 Hyperkalemia; R13.10 Dysphagia, unspecified; J96.22 Acute and chronic respiratory failure with hypercapnia; N39.0 Urinary tract infection, site not specified; J44.0 Chronic obstructive pulmonary disease with (acute) lower respiratory infection; J44.1 Chronic obstructive pulmonary disease with (acute) exacerbation; I42.0 Dilated cardiomyopathy; I69.354 Hemiplegia and hemiparesis following cerebral infarction affecting left non-dominant side; B96.20 Unspecified Escherichia coli [E. coli] as the cause of diseases classified elsewhere; E11.21 Type 2 diabetes mellitus with diabetic nephropathy; N18.3 Chronic kidney disease, stage 3 (moderate); E11.65 Type 2 diabetes mellitus with hyperglycemia; D64.9 Anemia, unspecified; E03.9 Hypothyroidism, unspecified; E11.22 Type 2 diabetes mellitus with diabetic chronic kidney disease; E11.649 Type 2 diabetes mellitus with hypoglycemia without coma; E78.5 Hyperlipidemia, unspecified; Z16.24 Resistance to multiple antibiotics; I25.10 Atherosclerotic heart disease of native coronary artery without angina pectoris; I49.3 Ventricular premature depolarization; J45.909 Unspecified asthma, uncomplicated; B96.89 Other specified bacterial agents as the cause of diseases classified elsewhere; I25.2 Old myocardial infarction; Z79.01 Long term (current) use of anticoagulants; Z91.041 Radiographic dye allergy status; Z90.710 Acquired absence of both cervix and uterus; Z90.49 Acquired absence of other specified parts of digestive tract; Z98.49 Cataract extraction status, unspecified eye; Z28.21 Immunization not carried out because of patient refusal
CPT/HCPCS: 31500; 36415; 36600; 43752; 71045; 73502; 74230; 76705; 76770; 80048; 80053; 80202; 81001; 82550; 82553; 82803; 82947; 82948; 83605; 83735; 83874; 83880; 84132; 84443; 84484; 85025; 85027; 85378; 85610; 85730; 87040; 87088; 87186; 87804; 92610; 92611; 93005; 93306; 93970; 94002; 94003; 94640; 94660; 94664; 97039; 99291; A4218; C1751; C1894; J0360; J0456; J0696; J1650; J1815; J1940; J1956; J2543; J2704; J2760; J3010; J3370; J3480; J3490; J7030; J7070; J7608; Q9963

== ENCOUNTER 2018-06-07 22:39 | Emergency (ER) | payer OTHER, MEDICARE ==
[~2018-06-07 22:39] MED LIST changes: -CA C1TAB93 PO; -DULO30CA51 PO; +METF-444 PO; -METF500T6 PO; -ROCURONIUM BROMIDE 10MG/1ML 5ML VL IV ONE
[2018-06-07] MEDS ORDERED: LIDOCAINE HCL 2% VISCOUS 15 ML UDCUP ONE (23:19)
[2018-06-07] MEDS ORDERED: MAG HYDROX/AL HYDROX/SIMETH ES 30 ML SUSP UDCUP ONE (23:19)
[2018-06-07] MEDS ORDERED: FAMOTIDINE/PF 20 MG/2 ML VIAL IV ONE (23:20)
[2018-06-07 23:22] LABS: BASOPHILS % (AUTO) 0.9 % (0.0-5.0); EOSINOPHILS % (AUTO) 4.1 % (0.0-8.0); LYMPHOCYTES % (AUTO) 27.5 % (21.0-51.0); MEAN CORPUSCULAR HEMOGLOBIN 29.5 pg (27.0-33.0); MEAN CORPUSCULAR HGB CONC 33.6 g/dL (32.0-36.0); MEAN CORPUSCULAR VOLUME 87.9 fL (79-99); MONOCYTES % (AUTO) 8.1 % (3.0-13.0); NEUTROPHILS % (AUTO) 59.4 % (40.0-77.0); PLATELET COUNT (AUTO) 241 K/uL (130-400); RED BLOOD CELL COUNT(AUTO) 3.86 MIL/uL (4.00-5.50)
[2018-06-07 23:34] LABS: POTASSIUM 3.6 mmol/L (3.5-5.1)
[2018-06-07 23:37] LABS: INR 0.95 (0.85-1.15); PARTIAL THROMBOPLASTIN TIME 28.4 SEC (26.3-35.5)
[2018-06-07 23:39] LABS: BILIRUBIN,TOTAL 0.3 mg/dL (0.2-1.0); TOTAL PROTEIN, SERUM 7.3 g/dL (6.0-8.3)
== END 2018-06-08 00:26 | disposition home or self-care (01) ==
LOC: EDH 22:39
DX: K21.9 Gastro-esophageal reflux disease without esophagitis (principal); R06.00 Dyspnea, unspecified; J45.909 Unspecified asthma, uncomplicated; I50.9 Heart failure, unspecified; I25.2 Old myocardial infarction; E11.9 Type 2 diabetes mellitus without complications; Z86.73 Personal history of transient ischemic attack (TIA), and cerebral infarction without residual deficits; Z91.041 Radiographic dye allergy status
CPT/HCPCS: 36415; 71045; 80053; 83605; 83690; 84484; 85025; 85610; 85730; 93005; 96374; 96375; 99284; J3490

== ENCOUNTER 2018-09-30 09:30 | Inpatient (IN) | payer OTHER, MEDICARE ==
[~2018-09-30] VITALS: Ht 157.5 cm; Wt 71.7 kg
[2018-09-30] MEDS ORDERED: MORPHINE SULFATE 4 MG/1ML SYG ONE (12:10)
[2018-09-30] MEDS ORDERED: ONDANSETRON HCL 4 MG/2 ML VIAL ONE (12:10)
[2018-09-30 12:32] LABS: BASOPHILS % (AUTO) 0.3 % (0.0-5.0); EOSINOPHILS % (AUTO) 0.4 % (0.0-8.0); HEMATOCRIT 33.9 % (36-48); LYMPHOCYTES % (AUTO) 7.3 % (21.0-51.0); MEAN CORPUSCULAR HEMOGLOBIN 29.5 pg (27.0-33.0); MEAN CORPUSCULAR HGB CONC 33.1 g/dL (32.0-36.0); MEAN CORPUSCULAR VOLUME 88.9 fL (79-99); MONOCYTES % (AUTO) 5.3 % (3.0-13.0); NEUTROPHILS % (AUTO) 86.7 % (40.0-77.0); PLATELET COUNT (AUTO) 202 K/uL (130-400); RED BLOOD CELL COUNT(AUTO) 3.81 MIL/uL (4.00-5.50); RED CELL DISTRIBUTION WIDTH 14.8 % (11.0-15.5); WHITE BLOOD COUNT (AUTO) 10.5 K/uL (4.8-10.8)
[2018-09-30 12:43] LABS: CREATININE 0.7 mg/dL (0.5-1.5); POTASSIUM 3.5 mmol/L (3.5-5.1)
[2018-09-30 12:50] LABS: INR 0.95 (0.85-1.15); PARTIAL THROMBOPLASTIN TIME 28.9 SEC (26.3-35.5)
[2018-09-30] MEDS ORDERED: ONDANSETRON HCL 4 MG/2 ML VIAL IVP PRN (13:45)
[2018-09-30] MEDS ORDERED: ACETAMINOPHEN 325 MG TAB PO PRN (13:45)
[2018-09-30] MEDS ORDERED: ALBUTEROL SULFATE 0.083% 2.5 MG/3 ML INH IH PRN (16:45)
[2018-09-30] MEDS ORDERED: DIPHENHYDRAMINE HCL 25 MG CAPSULE PO PRN (16:45)
[2018-09-30] MEDS ORDERED: GUAIFENESIN-DM 200/20 MG 10 ML PO PRN (16:45)
[2018-09-30] MEDS ORDERED: ZOLPIDEM TARTRATE 5 MG TAB PO PRN (16:45)
[2018-09-30] MEDS ORDERED: DiphenhydrAMINE HCL 50 MG/ML VIAL IV PRN (16:45)
[2018-09-30] MEDS ORDERED: LACTULOSE 20 GM/30 ML UDCUP PO PRN (16:45)
[2018-09-30] MEDS: METOCLOPRAMIDE 5 MG TABLET PO SCH (21:00)
[2018-09-30] MEDS: SIMVASTATIN 20 MG TABLET PO SCH (21:00)
[2018-09-30] MEDS: PREGABALIN 25 MG CAP PO SCH (21:00)
[2018-09-30] MEDS ORDERED: APIXABAN 5 MG TABLET PO SCH (21:00)
[2018-09-30] MEDS: CARVEDILOL 25 MG TABLET PO SCH (21:00)
[2018-09-30] MEDS: MONTELUKAST SODIUM 10 MG TAB PO SCH (21:00)
[2018-09-30] MEDS ORDERED: ENOXAPARIN SODIUM 40 MG/0.4 ML SYRINGE SQ ONE (21:21)
[2018-09-30 22:00] VITALS: BP 168/80
[2018-09-30] MEDS: SODIUM CHLORIDE 0.9% 1000ML 1,000 ML IV SCH (22:27)
[2018-09-30] MEDS: HYDROMORPHONE 1 MG/1 ML AMP IVP PRN (22:55)
[2018-09-30 23:33] VITALS: BP 131/63
[2018-10-01] MEDS: SODIUM CHLORIDE 0.9% 1000ML 1,000 ML IV SCH ×2 (02:20→12:31)
[2018-10-01 03:19] VITALS: BP 138/68
[2018-10-01 04:48] LABS: BASOPHILS % (AUTO) 0.3 % (0.0-5.0); EOSINOPHILS % (AUTO) 0.7 % (0.0-8.0); HEMATOCRIT 31.9 % (36-48); MEAN CORPUSCULAR HEMOGLOBIN 30.2 pg (27.0-33.0); MEAN CORPUSCULAR HGB CONC 33.9 g/dL (32.0-36.0); MEAN CORPUSCULAR VOLUME 89.1 fL (79-99); MONOCYTES % (AUTO) 6.5 % (3.0-13.0); NEUTROPHILS % (AUTO) 77.5 % (40.0-77.0); NUCLEATED RED BLOOD CELLS 0.1 % (0.0-0.19); PLATELET COUNT (AUTO) 221 K/uL (130-400); RED BLOOD CELL COUNT(AUTO) 3.58 MIL/uL (4.00-5.50); RED CELL DISTRIBUTION WIDTH 14.6 % (11.0-15.5); WHITE BLOOD COUNT (AUTO) 7.7 K/uL (4.8-10.8)
[2018-10-01 05:05] LABS: CREATININE 0.9 mg/dL (0.5-1.5); POTASSIUM 3.6 mmol/L (3.5-5.1)
[2018-10-01] MEDS: HYDROCODONE/ACETAMINOPHEN 5/325 MG TAB PO PRN ×3 (05:12→18:13)
[2018-10-01] MEDS: HYDROMORPHONE 1 MG/1 ML AMP IVP PRN (05:41)
[2018-10-01] MEDS: LEVOTHYROXINE 50 MCG TABLET PO SCH (05:59)
[2018-10-01] MEDS ORDERED: LEVOTHYROXINE 50 MCG TABLET ONE (05:59)
[2018-10-01 08:14] VITALS: BP 128/60
[2018-10-01] MEDS: PREGABALIN 25 MG CAP PO SCH ×2 (08:43→20:20)
[2018-10-01] MEDS: FUROSEMIDE 20 MG TABLET PO SCH (08:44)
[2018-10-01] MEDS: FERROUS SULFATE 325 MG TABLET.DR PO SCH (08:44)
[2018-10-01] MEDS: CARVEDILOL 25 MG TABLET PO SCH ×2 (08:45→20:20)
[2018-10-01] MEDS: OXYBUTYNIN 5 MG TAB.SR.24H PO SCH (08:45)
[2018-10-01] MEDS: METOCLOPRAMIDE 5 MG TABLET PO SCH ×3 (08:46→20:20)
[2018-10-01] MEDS: FAMOTIDINE/PF 20 MG/2 ML VIAL IV SCH (08:47)
[2018-10-01] MEDS ORDERED: ASPIRIN 81MG TAB.CHEW PO SCH (09:00)
[2018-10-01 11:39] VITALS: BP 138/61
[2018-10-01] MEDS ORDERED: MORPHINE SULFATE 2 MG/ML 1ML SYG IM PRN (14:15)
[2018-10-01] MEDS ORDERED: ONDANSETRON HCL 4 MG/2 ML VIAL IVP PRN (14:15)
[2018-10-01] MEDS ORDERED: LIDOCAINE HCL-MPF 1% 2ML VIAL IVP PRN ×2 (14:15)
[2018-10-01] MEDS ORDERED: POTASSIUM CHLORIDE 10MEQ/100ML 100 ML IV PRN (14:15)
[2018-10-01] MEDS ORDERED: POTASSIUM CHLORIDE 20MEQ/100ML 100 ML IV PRN (14:15)
[2018-10-01] MEDS ORDERED: POTASSIUM CHLORIDE 20 MEQ ERTAB PO PRN (14:15)
[2018-10-01] MEDS ORDERED: POTASSIUM CHLORIDE 10% ELIXIR 20 MEQ/15 ML UDCUP PO PRN (14:15)
[2018-10-01] MEDS ORDERED: MORPHINE SULFATE 2 MG/ML 1ML SYG ONE (16:45)
[2018-10-01 16:46] VITALS: BP 140/64
--- NOTE | 2018-10-01 17:12 | NUR ---
DCP CM met with pt and daughter discussed dc plans. Pt is semi-independent to assist w/ADL's, lives at home with daughter. Pt has a rollator walker, walker, shower chair, and bedside commode. Feels safe to go back home, daughter able to assist with transportation and needs as necessary. Daughter agreeable for placement short term rehab if MD recommends, would like to decide after surgery and once MD make recommendations, stated pt has been to [facility] before and maybe possibly will try it again. DC plan to home vs SNF. CM to cont to follow up. Addendum: 10/01/18 at 1714 by JESUS JUSTICE LVN CM Amended: Links added.
[2018-10-01] MEDS ORDERED: ENOXAPARIN SODIUM 40 MG/0.4 ML SYRINGE SQ SCH (18:00)
[2018-10-01 19:13] VITALS: BP 159/70
[2018-10-01] MEDS: SIMVASTATIN 20 MG TABLET PO SCH (20:20)
[2018-10-01] MEDS: MONTELUKAST SODIUM 10 MG TAB PO SCH (20:20)
[2018-10-01 23:06] VITALS: BP 148/58
[2018-10-01] MEDS: MORPHINE SULFATE 2 MG/ML 1ML SYG IVP PRN (23:10)
[2018-10-02] VITALS (18 sets, daily range): BP systolic 124–164; BP diastolic 48–74
[2018-10-02] MEDS: MORPHINE SULFATE 2 MG/ML 1ML SYG IVP PRN ×3 (04:23→22:49)
[2018-10-02] MEDS: LEVOTHYROXINE 50 MCG TABLET PO SCH (05:19)
[2018-10-02] MEDS: SODIUM CHLORIDE 0.9% 1000ML 1,000 ML IV SCH ×4 (05:21→20:40)
[2018-10-02 05:31] LABS: BASOPHILS % (AUTO) 0.4 % (0.0-5.0); EOSINOPHILS % (AUTO) 1.1 % (0.0-8.0); LYMPHOCYTES % (AUTO) 21.1 % (21.0-51.0); MEAN CORPUSCULAR HEMOGLOBIN 30.2 pg (27.0-33.0); MEAN CORPUSCULAR HGB CONC 33.6 g/dL (32.0-36.0); MEAN CORPUSCULAR VOLUME 89.8 fL (79-99); MONOCYTES % (AUTO) 9.6 % (3.0-13.0); NEUTROPHILS % (AUTO) 67.8 % (40.0-77.0); PLATELET COUNT (AUTO) 180 K/uL (130-400); RED BLOOD CELL COUNT(AUTO) 3.89 MIL/uL (4.00-5.50); RED CELL DISTRIBUTION WIDTH 14.6 % (11.0-15.5); WHITE BLOOD COUNT (AUTO) 6.9 K/uL (4.8-10.8)
[2018-10-02 05:35] LABS: INR 0.97 (0.85-1.15); PARTIAL THROMBOPLASTIN TIME 27.1 SEC (26.3-35.5); PROTHROMBIN TIME 10.2 SEC (9.6-11.6)
[2018-10-02 05:43] LABS: B-TYPE NATRIURETIC PEPTIDE 507 pg/mL (0-100)
[2018-10-02 05:45] LABS: ALBUMIN 2.8 g/dL (3.5-5.0); BILIRUBIN,TOTAL 0.5 mg/dL (0.2-1.0); CREATININE 0.8 mg/dL (0.5-1.5); MAGNESIUM 1.9 mg/dL (1.80-2.40); PHOSPHORUS 2.8 mg/dL (2.5-4.9); POTASSIUM 4.1 mmol/L (3.5-5.1); TOTAL PROTEIN, SERUM 7.1 g/dL (6.0-8.3)
--- NOTE | 2018-10-02 08:00 | NUR ---
PHYSICAL ASSESSMENT DONE AT 0800
[2018-10-02 08:05] LABS: ABG BASE EXCESS -0.8 mmol/L (-2.0-3.0); ABG HCO3 23.9 mmol/L (21.0-28.0); ABG PCO2 40 mmHg (32-45)
[2018-10-02] MEDS: CARVEDILOL 25 MG TABLET PO SCH ×2 (08:37→20:41)
[2018-10-02] MEDS: DIGOXIN 125 MCG TABLET PO SCH (09:00)
[2018-10-02] MEDS: METOCLOPRAMIDE 5 MG TABLET PO SCH ×3 (09:00→20:41)
[2018-10-02] MEDS: FUROSEMIDE 20 MG TABLET PO SCH (09:00)
[2018-10-02] MEDS: PREGABALIN 25 MG CAP PO SCH ×2 (09:00→20:41)
[2018-10-02] MEDS: OXYBUTYNIN 5 MG TAB.SR.24H PO SCH (09:00)
[2018-10-02] MEDS: FERROUS SULFATE 325 MG TABLET.DR PO SCH (09:00)
[2018-10-02] MEDS: FAMOTIDINE/PF 20 MG/2 ML VIAL IV SCH (09:00)
--- NOTE | 2018-10-02 09:00 | NUR ---
SPINNER FIXER, TU AWARE OF ABG'S AND BNP
--- NOTE | 2018-10-02 11:00 | NUR ---
PT TAKEN TO OR FAMILY AT BED SIDE REPORT GIVEN TO OR NURSES PT DENIES SOB OR CHEST PAIN
[2018-10-02] MEDS: CEFAZOLIN SODIUM 1 GM VIAL IVP PRN ×2 (11:21→13:30)
[2018-10-02] MEDS ORDERED: DEXAMETHASONE SOD PHOSPHATE 10MG/ML 1ML VIAL ONE (12:45)
[2018-10-02] MEDS ORDERED: ONDANSETRON HCL 4 MG/2 ML VIAL ONE (12:45)
[2018-10-02] MEDS ORDERED: LIDOCAINE PF 2% 5ML ABBOJECT ONE (12:45)
[2018-10-02] MEDS ORDERED: MIDAZOLAM HCL 1 MG/ML 2ML VIAL ONE (12:45)
[2018-10-02] MEDS ORDERED: PROPOFOL 10 MG/ML 20ML VIAL IV ONE (12:45)
[2018-10-02] MEDS ORDERED: FENTANYL CITRATE PF 50 MCG/1 ML 2ML VIAL ONE (12:46)
[2018-10-02] MEDS ORDERED: EPHEDRINE SULFATE 50 MG/ML AMPULE ONE (13:09)
[2018-10-02] MEDS ORDERED: CEFAZOLIN SODIUM 1 GM VIAL ONE (13:36)
[2018-10-02] MEDS ORDERED: ROPIVACAINE 0.5% 5MG/ML 30ML IJ ONE (15:40)
[2018-10-02] MEDS ORDERED: NEOSTIGMINE 5MG/5ML SYR IV ONE (15:49)
[2018-10-02] MEDS ORDERED: KETOROLAC TROMETHAMINE 15MG/ML IV PRN (16:00)
[2018-10-02] MEDS ORDERED: POTASSIUM CHLORIDE 20 MEQ ERTAB PO PRN (16:00)
[2018-10-02] MEDS ORDERED: DIPHENHYDRAMINE HCL 25 MG CAPSULE PO PRN (16:00)
[2018-10-02] MEDS ORDERED: MORPHINE-NS 50 MG/50 ML 50 ML IV PRN (16:00)
[2018-10-02] MEDS ORDERED: TEMAZEPAM 15 MG CAPSULE PO PRN (16:00)
[2018-10-02] MEDS ORDERED: PROMETHAZINE HCL 25 MG/ML 1ML AMPULE IM PRN (16:00)
[2018-10-02] MEDS ORDERED: CALCIUM CARBONATE 500 MG TABLET PO PRN (16:00)
[2018-10-02] MEDS ORDERED: NALOXONE HCL 0.4 MG/1 ML ML IVP PRN (16:00)
[2018-10-02] MEDS ORDERED: DiphenhydrAMINE HCL 50 MG/ML VIAL IVP PRN (16:00)
[2018-10-02] MEDS ORDERED: FERROUS FUMARATE 324 MG TABLET PO PRN (16:00)
[2018-10-02] MEDS ORDERED: POTASSIUM CHLORIDE 10% ELIXIR 20 MEQ/15 ML UDCUP PO PRN (16:00)
[2018-10-02] MEDS ORDERED: LIDOCAINE HCL-MPF 1% 2ML VIAL IVP PRN (16:00)
[2018-10-02] MEDS ORDERED: POTASSIUM CHLORIDE 20MEQ/100ML 100 ML IV PRN (16:00)
[2018-10-02] MEDS ORDERED: MORPHINE SULFATE 4 MG/1ML SYG ONE (16:28)
[2018-10-02] MEDS: INSULIN HUMULIN R 100 UNIT/ML 3ML SQ SCH ×2 (16:30→21:00)
--- NOTE | 2018-10-02 17:20 | NUR ---
PT BACK VITAL SIGNS STABLE DENIES SOB OR CHEST PAIN SCD'S AND TEDS IN PLACE CALL LIGHT AT BED SIDE WITH REACH WITH CALL BACK SUCCESSFULLY
[2018-10-02] MEDS: HYDROCODONE/ACETAMINOPHEN 5/325 MG TAB PO PRN (20:37)
[2018-10-02] MEDS: MONTELUKAST SODIUM 10 MG TAB PO SCH (20:41)
[2018-10-02] MEDS: SIMVASTATIN 20 MG TABLET PO SCH (20:41)
[2018-10-02] MEDS: ASPIRIN 325 MG TABLET PO SCH (20:41)
[2018-10-02] MEDS ORDERED: CEFAZOLIN SODIUM 1 GM VIAL IVP SCH (21:00)
[2018-10-03] MEDS: SODIUM CHLORIDE 0.9% 1000ML 1,000 ML IV SCH ×4 (01:56→14:31)
[2018-10-03 03:25] VITALS: BP 143/71
[2018-10-03 04:59] LABS: HEMATOCRIT 27.3 % (36-48); MEAN CORPUSCULAR HEMOGLOBIN 29.8 pg (27.0-33.0); MEAN CORPUSCULAR HGB CONC 33.2 g/dL (32.0-36.0); MEAN CORPUSCULAR VOLUME 89.6 fL (79-99); PLATELET COUNT (AUTO) 193 K/uL (130-400); RED BLOOD CELL COUNT(AUTO) 3.05 MIL/uL (4.00-5.50); RED CELL DISTRIBUTION WIDTH 14.6 % (11.0-15.5); WHITE BLOOD COUNT (AUTO) 8.1 K/uL (4.8-10.8)
[2018-10-03] MEDS ORDERED: CEFAZOLIN SODIUM 1 GM VIAL IVP SCH (05:00)
[2018-10-03 05:20] LABS: CREATININE 0.9 mg/dL (0.5-1.5); POTASSIUM 3.9 mmol/L (3.5-5.1)
[2018-10-03] MEDS: LEVOTHYROXINE 50 MCG TABLET PO SCH (05:54)
[2018-10-03] MEDS: HYDROCODONE/ACETAMINOPHEN 5/325 MG TAB PO PRN ×3 (05:54→23:31)
[2018-10-03] MEDS: INSULIN HUMULIN R 100 UNIT/ML 3ML SQ SCH ×4 (06:00→20:47)
[2018-10-03 08:20] VITALS: BP 144/57
[2018-10-03] MEDS: METOCLOPRAMIDE 5 MG TABLET PO SCH ×3 (09:00→19:47)
[2018-10-03] MEDS: FAMOTIDINE/PF 20 MG/2 ML VIAL IV SCH (09:00)
[2018-10-03] MEDS: PREGABALIN 25 MG CAP PO SCH ×2 (09:01→19:46)
[2018-10-03] MEDS: POLYETHYLENE GLYCOL 3350 17 GM POWD.PACK PO SCH (09:01)
[2018-10-03] MEDS: CARVEDILOL 25 MG TABLET PO SCH ×2 (09:02→19:46)
[2018-10-03] MEDS: ASPIRIN 325 MG TABLET PO SCH ×2 (09:02→19:46)
[2018-10-03] MEDS: OXYBUTYNIN 5 MG TAB.SR.24H PO SCH (09:11)
[2018-10-03] MEDS: FUROSEMIDE 20 MG TABLET PO SCH (09:12)
[2018-10-03 11:18] VITALS: BP 136/64
[2018-10-03 16:33] VITALS: BP 140/56
[2018-10-03 19:10] VITALS: BP 141/52
[2018-10-03] MEDS: MONTELUKAST SODIUM 10 MG TAB PO SCH (19:46)
[2018-10-03] MEDS: SIMVASTATIN 20 MG TABLET PO SCH (19:46)
[2018-10-03] MEDS: MORPHINE SULFATE 2 MG/ML 1ML SYG IVP PRN (19:47)
[2018-10-03 23:05] VITALS: BP 124/60
[2018-10-04] MEDS: SODIUM CHLORIDE 0.9% 1000ML 1,000 ML IV SCH ×2 (00:25→20:31)
[2018-10-04 03:10] VITALS: BP 127/48
[2018-10-04 04:47] LABS: MEAN CORPUSCULAR HEMOGLOBIN 30.6 pg (27.0-33.0); MEAN CORPUSCULAR HGB CONC 34.7 g/dL (32.0-36.0); MEAN CORPUSCULAR VOLUME 88.3 fL (79-99); PLATELET COUNT (AUTO) 155 K/uL (130-400); RED BLOOD CELL COUNT(AUTO) 2.31 MIL/uL (4.00-5.50); RED CELL DISTRIBUTION WIDTH 14.4 % (11.0-15.5); WHITE BLOOD COUNT (AUTO) 7.4 K/uL (4.8-10.8)
[2018-10-04 04:54] LABS: HEMATOCRIT 20.4 % (36-48)
[2018-10-04 04:57] LABS: CREATININE 0.9 mg/dL (0.5-1.5); POTASSIUM 3.7 mmol/L (3.5-5.1)
[2018-10-04] MEDS: INSULIN HUMULIN R 100 UNIT/ML 3ML SQ SCH ×4 (06:09→20:46)
[2018-10-04] MEDS: LEVOTHYROXINE 50 MCG TABLET PO SCH (06:10)
[2018-10-04] MEDS ORDERED: FUROSEMIDE 10 MG/ML 2ML VIAL IV PRN (06:45)
[2018-10-04 07:30] VITALS: BP 132/50
[2018-10-04] MEDS: FAMOTIDINE/PF 20 MG/2 ML VIAL IV SCH (09:52)
[2018-10-04] MEDS: CARVEDILOL 25 MG TABLET PO SCH ×2 (09:52→20:51)
[2018-10-04] MEDS: PREGABALIN 25 MG CAP PO SCH ×2 (09:52→20:49)
[2018-10-04] MEDS: POLYETHYLENE GLYCOL 3350 17 GM POWD.PACK PO SCH (09:53)
[2018-10-04] MEDS: OXYBUTYNIN 5 MG TAB.SR.24H PO SCH (09:53)
[2018-10-04] MEDS: ASPIRIN 325 MG TABLET PO SCH ×2 (09:53→20:49)
[2018-10-04] MEDS: METOCLOPRAMIDE 5 MG TABLET PO SCH ×3 (09:53→20:51)
[2018-10-04] MEDS: FUROSEMIDE 20 MG TABLET PO SCH (09:53)
[2018-10-04] MEDS: HYDROCODONE/ACETAMINOPHEN 5/325 MG TAB PO PRN ×3 (09:58→23:10)
[2018-10-04] MEDS: DIGOXIN 125 MCG TABLET PO SCH (09:58)
[2018-10-04 11:00] VITALS: BP 109/57
[2018-10-04 12:29] LABS: HEMATOCRIT 24.8 % (36-48)
--- NOTE | 2018-10-04 13:00 | NUR ---
PER DR. TRISTA RIVERA TO HOLD PRBCS START IRON PO HOLD 2 UNITS OF BLOOD, START IRON PO FOR REPEAT H/H 8.3/24.9
--- NOTE | 2018-10-04 15:25 | NUR ---
cm note met with patient and states agreeable to snf level of care at [facility], also called daughter ashlyn tirado as per pt's request, and daughter also states agreeable to [facility], referral faxed and spoke to Brianna cantor at [facility] will request authorization. pending approval. also faxed info to jeannie esquivel for assistance. possible dc over the weekend. Addendum: 10/04/18 at 1707 by CRISPIN RAYA CM cm note also faxed clinical to [phone] and orders for dme for walker and 3 in 1 bsc for pt to [facility] for after dc. from [facility].
[2018-10-04 16:00] VITALS: BP 114/48
[2018-10-04] MEDS ORDERED: BISACODYL 5 MG TABLET.DR PO PRN (16:00)
--- NOTE | 2018-10-04 17:00 | NUR ---
cm note call made to satish lopez no approval yet from [facility] for snf. will let cm know when approved.
[2018-10-04 18:22] LABS: APPEARANCE,URINE Clear (CLEAR); BILIRUBIN,URINE Negative (NEGATIVE); COLOR,URINE Yellow (YELLOW); GLUCOSE, URINE (UA) Negative (NEGATIVE); KETONES,URINE Negative (NEGATIVE); LEUKOCYTE ESTERASE ,URINE Trace (NEGATIVE); NITRATE,URINE Positive (NEGATIVE); OCCULT BLOOD,URINE Negative (NEGATIVE); PROTEIN,URINE Negative (NEGATIVE)
[2018-10-04 18:38] LABS: BACTERIA,URINE Few /HPF (None Seen); RBC,URINE 0-1 /HPF (0-1); SQUAMOUS EPITHELIAL CELL,UR Few /HPF (0-2)
[2018-10-04 18:39] LABS: HYALINE CASTS, URINE 0-1 /LPF (0-1 /LPF); MUCUS,URINE Few LPF (None Seen)
[2018-10-04 20:00] VITALS: BP 139/61
[2018-10-04] MEDS: MONTELUKAST SODIUM 10 MG TAB PO SCH (20:51)
[2018-10-04] MEDS: SIMVASTATIN 20 MG TABLET PO SCH (20:51)
[2018-10-04 23:33] VITALS: BP 131/51
[2018-10-05 04:00] VITALS: BP 145/72
[2018-10-05 05:31] LABS: HEMATOCRIT 21.8 % (36-48); MEAN CORPUSCULAR HEMOGLOBIN 30.4 pg (27.0-33.0); MEAN CORPUSCULAR HGB CONC 34.1 g/dL (32.0-36.0); MEAN CORPUSCULAR VOLUME 89.1 fL (79-99); NUCLEATED RED BLOOD CELLS 0.1 % (0.0-0.19); PLATELET COUNT (AUTO) 181 K/uL (130-400); RED BLOOD CELL COUNT(AUTO) 2.44 MIL/uL (4.00-5.50); RED CELL DISTRIBUTION WIDTH 14.5 % (11.0-15.5); WHITE BLOOD COUNT (AUTO) 7.5 K/uL (4.8-10.8)
[2018-10-05 05:36] LABS: CREATININE 0.8 mg/dL (0.5-1.5)
[2018-10-05] MEDS: SODIUM CHLORIDE 0.9% 1000ML 1,000 ML IV SCH ×2 (06:09→22:04)
[2018-10-05] MEDS: INSULIN HUMULIN R 100 UNIT/ML 3ML SQ SCH ×4 (06:18→21:00)
[2018-10-05] MEDS: LEVOTHYROXINE 50 MCG TABLET PO SCH (06:18)
[2018-10-05 08:10] VITALS: BP 142/52
--- NOTE | 2018-10-05 08:25 | NUR ---
H&H 7.4, 21.8. Call placed to Dr. Waller' cell phone, message left requesting call back.
--- NOTE | 2018-10-05 09:56 | NUR ---
2nd attempt to reach Dr. Waller, direct to voicemail. Awaiting callback.
[2018-10-05] MEDS: FAMOTIDINE/PF 20 MG/2 ML VIAL IV SCH (10:01)
[2018-10-05] MEDS: HYDROCODONE/ACETAMINOPHEN 5/325 MG TAB PO PRN (10:01)
[2018-10-05] MEDS: ASPIRIN 325 MG TABLET PO SCH ×2 (10:01→22:02)
[2018-10-05] MEDS: FUROSEMIDE 20 MG TABLET PO SCH (10:02)
[2018-10-05] MEDS: FERROUS FUMARATE 324 MG TABLET PO SCH (10:02)
[2018-10-05] MEDS: CARVEDILOL 25 MG TABLET PO SCH ×2 (10:02→22:04)
[2018-10-05] MEDS: OXYBUTYNIN 5 MG TAB.SR.24H PO SCH (10:02)
[2018-10-05] MEDS: PREGABALIN 25 MG CAP PO SCH ×2 (10:03→22:04)
[2018-10-05] MEDS: METOCLOPRAMIDE 5 MG TABLET PO SCH ×3 (10:03→22:02)
[2018-10-05] MEDS: POLYETHYLENE GLYCOL 3350 17 GM POWD.PACK PO SCH (10:03)
[2018-10-05 11:32] VITALS: BP 152/64
--- NOTE | 2018-10-05 12:00 | NUR ---
TERESA Mckinley for [facility] [facility], here for daily rounds with pt. Notified of H&H results. She stated no need for transfusion at present, will continue to monitor.
--- NOTE | 2018-10-05 14:49 | NUR ---
Dr. Waller in house. Notified of H&H. Rec'd instruction to transfuse 1 unit PRBC's, give IV lasix as previously ordered after.
[2018-10-05] MEDS ORDERED: CEFTRIAXONE SODIUM 2 GM VIAL IVP SCH ×2 (15:00→21:15)
--- NOTE | 2018-10-05 16:30 | NUR ---
Attempted to flush left hand 24 g and rt forearm 22 g PIV's, both are infiltrated and leaking, despite flushing well previously. Rosalio Gomez RN, attempted to start PIV unsuccessfully, ER nurse Jeremy also unsuccessful. Attempted to call Dr. Waller, but call went to voicemail. Notified Dr. Boykin
[2018-10-05 16:32] VITALS: BP 132/71
--- NOTE | 2018-10-05 17:30 | NUR ---
Dr. Waller notified of no iv access. Rec'd instruction to keep trying to insert one, pt must have PRBC's tonight. stated may give Macrobid 100 po BID instead of Rocephin if no iv access, but either way, pt will require one for transfusion. Will allow pt to rest and then attempt again.
[2018-10-05] MEDS ORDERED: BISACODYL 10 MG SUPP.RECT RC ONE (19:00)
--- NOTE | 2018-10-05 19:45 | NUR ---
Khang Giordano RN, able to insert 22g to left wrist. Endorsed to HS nurse
[2018-10-05 20:00] VITALS: BP 150/68
[2018-10-05] MEDS: SIMVASTATIN 20 MG TABLET PO SCH (22:02)
[2018-10-05] MEDS: MONTELUKAST SODIUM 10 MG TAB PO SCH (22:02)
[2018-10-06] VITALS (7 sets, daily range): BP systolic 135–199; BP diastolic 62–77
[2018-10-06] MEDS: HYDROCODONE/ACETAMINOPHEN 5/325 MG TAB PO PRN ×2 (01:04→20:51)
[2018-10-06] MEDS: SODIUM CHLORIDE 0.9% 1000ML 1,000 ML IV SCH ×2 (02:31→12:31)
[2018-10-06] MEDS: LEVOTHYROXINE 50 MCG TABLET PO SCH (06:40)
[2018-10-06] MEDS: INSULIN HUMULIN R 100 UNIT/ML 3ML SQ SCH ×4 (06:41→20:50)
[2018-10-06] MEDS: POLYETHYLENE GLYCOL 3350 17 GM POWD.PACK PO SCH (09:00)
--- NOTE | 2018-10-06 09:40 | NUR ---
UP IN THE CHAIR WITH PT ASSISTANCE. REPORTED BM THIS MORNING AND REFUSED MIRALAX. FAMILY IS AT THE BEDSIDE ATTENDING.
[2018-10-06] MEDS: PREGABALIN 25 MG CAP PO SCH ×2 (10:08→20:50)
[2018-10-06] MEDS: MORPHINE SULFATE 2 MG/ML 1ML SYG IVP PRN (10:10)
[2018-10-06] MEDS: FAMOTIDINE/PF 20 MG/2 ML VIAL IV SCH (10:11)
[2018-10-06] MEDS: FERROUS FUMARATE 324 MG TABLET PO SCH (10:11)
[2018-10-06] MEDS: ASPIRIN 325 MG TABLET PO SCH ×2 (10:11→20:50)
[2018-10-06] MEDS: CARVEDILOL 25 MG TABLET PO SCH ×2 (10:14→20:50)
[2018-10-06] MEDS: DIGOXIN 125 MCG TABLET PO SCH (10:14)
[2018-10-06] MEDS: OXYBUTYNIN 5 MG TAB.SR.24H PO SCH (10:15)
[2018-10-06] MEDS: FUROSEMIDE 20 MG TABLET PO SCH (10:15)
[2018-10-06] MEDS: METOCLOPRAMIDE 5 MG TABLET PO SCH ×3 (10:19→20:49)
[2018-10-06] MEDS ORDERED: HYDRALAZINE HCL 20 MG/ML VIAL IV PRN (16:00)
[2018-10-06] MEDS: MONTELUKAST SODIUM 10 MG TAB PO SCH (20:50)
[2018-10-06] MEDS: SIMVASTATIN 20 MG TABLET PO SCH (20:50)
[2018-10-07] VITALS (7 sets, daily range): BP systolic 122–189; BP diastolic 53–74
[2018-10-07] MEDS: HYDROCODONE/ACETAMINOPHEN 5/325 MG TAB PO PRN ×3 (05:15→20:41)
[2018-10-07 06:50] LABS: CREATININE 0.9 mg/dL (0.5-1.5); POTASSIUM 4.1 mmol/L (3.5-5.1)
[2018-10-07] MEDS: LEVOTHYROXINE 50 MCG TABLET PO SCH (06:52)
[2018-10-07] MEDS: INSULIN HUMULIN R 100 UNIT/ML 3ML SQ SCH ×4 (06:52→20:45)
[2018-10-07] MEDS: POLYETHYLENE GLYCOL 3350 17 GM POWD.PACK PO SCH (09:54)
[2018-10-07] MEDS: ASPIRIN 325 MG TABLET PO SCH ×2 (09:54→20:30)
[2018-10-07] MEDS: FERROUS FUMARATE 324 MG TABLET PO SCH (09:55)
[2018-10-07] MEDS: PREGABALIN 25 MG CAP PO SCH ×2 (09:55→20:30)
[2018-10-07] MEDS: CARVEDILOL 25 MG TABLET PO SCH ×2 (09:56→20:40)
[2018-10-07] MEDS: OXYBUTYNIN 5 MG TAB.SR.24H PO SCH (09:56)
[2018-10-07] MEDS: FUROSEMIDE 20 MG TABLET PO SCH (09:57)
[2018-10-07] MEDS: METOCLOPRAMIDE 5 MG TABLET PO SCH ×3 (09:57→20:41)
[2018-10-07] MEDS: FAMOTIDINE/PF 20 MG/2 ML VIAL IV SCH (12:19)
--- NOTE | 2018-10-07 13:09 | NUR ---
CM Note: [employer] pending ins auth Spoke to Pepper Esctoo, received updated clinicals, forwarded to insurance already. Pt pending ins auth at this time. Primary nurse aware. CM to cont to follow up.
--- NOTE | 2018-10-07 15:00 | NUR ---
CM Note: [employer] ins auth and acceptance Spoke to Pepper Escoto, pt has ins auth and acceptance. Primary nurse aware. CM to cont to follow up.
[2018-10-07] MEDS ORDERED: ASPI-1012 PO (20:08)
[2018-10-07] MEDS ORDERED: HYDR-2132 PO (20:08)
--- NOTE | 2018-10-07 20:15 | NUR ---
MD WESTON IN PT ROOM AT THIS TIME, OK TO DISCHARGE PT TO [facility].
[2018-10-07] MEDS: MONTELUKAST SODIUM 10 MG TAB PO SCH (20:40)
[2018-10-07] MEDS: SIMVASTATIN 20 MG TABLET PO SCH (20:41)
--- NOTE | 2018-10-07 21:30 | NUR ---
REPORT CALLED TO MARISA BARNES AT [facility]. PT AND DAUGHTER AT BEDSIDE INFORMED ON DISCHARGE ORDERS, TO FOLLOW UP WITH DR WESTON IN 3 WEEKS, AND PCP IN 1 WEEK. DRESSING CHANGES TO RT HIP DAILY, AND PRESCRIPTION MEDICATION GIVEN BY DR. WESTON, PT AND DAUGHTER VERBALIZED UNDERSTANDING. AWAITING [facility] TRANSPORT FOR PT FILTER WASHER AT THIS TIME.
--- NOTE | 2018-10-07 22:50 | NUR ---
KARIE MANAGER DISASTER RECOVERY IN PT ROOM. PT ASSISTED INTO WHEELCHAIR, NO C/O PAIN AT THIS TIME. ALL PAPERWORK GIVEN TO MANAGER DISASTER RECOVERY.
== END 2018-10-07 22:43 | DRG 481 ==
LOC: EDH 09:30 → EDHIP 12:40 → 4BH 20:40
PROVIDERS: ADMIT Internal Medicine; ATTEND Internal Medicine
PROC: 0QS606Z Reposition Right Upper Femur with Intramedullary Internal Fixation Device, Open Approach (ICD-10-PCS; principal; 2018-10-02 12:40)
PROC: 30233N1 Transfusion of Nonautologous Red Blood Cells into Peripheral Vein, Percutaneous Approach (ICD-10-PCS; 2018-10-02 12:40)
DX: S72.121A Displaced fracture of lesser trochanter of right femur, initial encounter for closed fracture (principal); I42.9 Cardiomyopathy, unspecified; I69.354 Hemiplegia and hemiparesis following cerebral infarction affecting left non-dominant side; E11.9 Type 2 diabetes mellitus without complications; I10 Essential (primary) hypertension; D64.9 Anemia, unspecified; E78.5 Hyperlipidemia, unspecified; I25.10 Atherosclerotic heart disease of native coronary artery without angina pectoris; E03.9 Hypothyroidism, unspecified; E66.9 Obesity, unspecified; I69.341 Monoplegia of lower limb following cerebral infarction affecting right dominant side; J45.909 Unspecified asthma, uncomplicated; W01.0XXA Fall on same level from slipping, tripping and stumbling without subsequent striking against object, initial encounter; Z79.4 Long term (current) use of insulin; Z79.899 Other long term (current) drug therapy; Y93.89 Activity, other specified; Y92.89 Other specified places as the place of occurrence of the external cause; Y99.8 Other external cause status; Z79.01 Long term (current) use of anticoagulants; I25.2 Old myocardial infarction; Z88.8 Allergy status to other drugs, medicaments and biological substances
CPT/HCPCS: 36415; 36430; 36600; 71045; 72192; 73562; 76000; 80048; 80053; 81001; 82803; 82948; 83735; 83880; 84100; 85014; 85018; 85025; 85027; 85610; 85730; 86850; 86900; 86901; 86922; 87077; 87088; 87186; 93005; 97039; A4218; G0378; J0690; J0696; J1100; J1170; J1650; J1815; J1940; J2001; J2250; J2270; J2405; J2704; J2710; J2795; J3010; J3490; J7030; P9016

== ENCOUNTER 2019-05-03 10:22 | Observation (INO) | payer OTHER, MEDICARE ==
[~2019-05-03] VITALS: Ht 157.5 cm; Wt 73.0 kg
[~2019-05-03 10:22] MED LIST changes: -APIX5TAB PO; +ASPI-1012 PO; +HYDR-2132 PO; -OXYB5TAB PO; +OXYB5TAB4 PO
[2019-05-03 11:18] LABS: BASOPHILS % (AUTO) 0.7 % (0.0-5.0); EOSINOPHILS % (AUTO) 2.9 % (0.0-8.0); HEMATOCRIT 32.3 % (36-48); LYMPHOCYTES % (AUTO) 21.8 % (21.0-51.0); MEAN CORPUSCULAR HEMOGLOBIN 29.6 pg (27.0-33.0); MEAN CORPUSCULAR HGB CONC 34.1 g/dL (32.0-36.0); MEAN CORPUSCULAR VOLUME 86.8 fL (79-99); MONOCYTES % (AUTO) 7.6 % (3.0-13.0); PLATELET COUNT (AUTO) 278 K/uL (130-400); RED BLOOD CELL COUNT(AUTO) 3.72 MIL/uL (4.00-5.50); RED CELL DISTRIBUTION WIDTH 13.9 % (11.0-15.5); WHITE BLOOD COUNT (AUTO) 6.1 K/uL (4.8-10.8)
[2019-05-03 11:43] LABS: POTASSIUM 3.7 mmol/L (3.5-5.1)
[2019-05-03 11:44] LABS: ALBUMIN 2.9 g/dL (3.5-5.0); BILIRUBIN,TOTAL 0.4 mg/dL (0.2-1.0); CREATININE 0.9 mg/dL (0.5-1.5); TOTAL PROTEIN, SERUM 7.4 g/dL (6.0-8.3)
[2019-05-03 11:53] LABS: B-TYPE NATRIURETIC PEPTIDE 228 pg/mL (0-100)
[2019-05-03] MEDS ORDERED: FUROSEMIDE 10 MG/ML 2ML VIAL ONE (12:43)
[2019-05-03] MEDS ORDERED: OSELTAMIVIR PHOSPHATE 75 MG CAP ONE (12:44)
[2019-05-03 12:59] LABS: APPEARANCE,URINE Cloudy (CLEAR); BILIRUBIN,URINE Negative (NEGATIVE); COLOR,URINE Yellow (YELLOW); GLUCOSE, URINE (UA) Negative (NEGATIVE); KETONES,URINE Negative (NEGATIVE); LEUKOCYTE ESTERASE ,URINE Large (NEGATIVE); NITRATE,URINE Negative (NEGATIVE); OCCULT BLOOD,URINE Negative (NEGATIVE); PH,URINE 7.5 (5.0-8.0); PROTEIN,URINE Negative (NEGATIVE); UROBILINOGEN,URINE 0.2 mg/dL (0.2-1.0)
[2019-05-03] MEDS ORDERED: LEVOFLOXACIN 500 MG TABLET ONE (13:24)
[2019-05-03] MEDS ORDERED: AZITHROMYCIN 500MG+NS 250ML 250 ML IV ONE (13:24)
[2019-05-03 13:38] LABS: BACTERIA,URINE Moderate /HPF (None Seen); RBC,URINE None Seen /HPF (0-1); SQUAMOUS EPITHELIAL CELL,UR 30-50 /HPF (0-2)
[2019-05-03 14:01] LABS: INR 0.97 (0.85-1.15); PARTIAL THROMBOPLASTIN TIME 27.6 SEC (26.3-35.5)
[2019-05-03] MEDS ORDERED: HYDRALAZINE HCL 20 MG/ML VIAL IV PRN (14:45)
[2019-05-03] MEDS ORDERED: LACTULOSE 20 GM/30 ML UDCUP PO PRN (14:45)
[2019-05-03] MEDS ORDERED: NITROGLYCERIN 0.4 MG SL TAB SL PRN (14:45)
[2019-05-03] MEDS ORDERED: ACETAMINOPHEN 325 MG TAB PO PRN (14:45)
[2019-05-03] MEDS ORDERED: ONDANSETRON HCL 4 MG/2 ML VIAL IV PRN (14:45)
[2019-05-03] MEDS: INSULIN HUMULIN R 100 UNIT/ML 3ML SQ SCH ×2 (16:30→21:00)
[2019-05-03] MEDS: CEFTRIAXONE SODIUM 1 GM IVP SCH (16:46)
[2019-05-03] MEDS ORDERED: HYDROCODONE/ACETAMINOPHEN 5/325 MG TAB PO PRN ×2 (17:00→17:15)
[2019-05-03] MEDS ORDERED: METF-444 PO (17:02)
[2019-05-03] MEDS ORDERED: METO5TAB2 PO (17:04)
[2019-05-03] MEDS ORDERED: MULT-1038 PO (17:06)
[2019-05-03] MEDS ORDERED: OMEG-148 PO (17:06)
[2019-05-03] MEDS ORDERED: DULO30CA52 PO (17:16)
[2019-05-03] MEDS ORDERED: HYDR-4154 PO (17:16)
[2019-05-03] MEDS ORDERED: OXYB5TAB4 PO (17:16)
[2019-05-03] MEDS ORDERED: AMLO5TAB9 PO (17:16)
[2019-05-03] MEDS ORDERED: TRAM-355 PO (17:16)
[2019-05-03] MEDS ORDERED: FURO20TA4 PO (17:16)
[2019-05-03] MEDS ORDERED: SENN8.6T20 PO (17:16)
[2019-05-03] MEDS: IPRATROPIUM/ALBUTEROL SULFATE 3 ML SOLUTION IH SCH ×2 (18:03→23:12)
[2019-05-03 20:00] VITALS: BP 137/62
[2019-05-03] MEDS: FUROSEMIDE 20 MG TABLET PO SCH (20:58)
[2019-05-03] MEDS: FAMOTIDINE 20MG TAB 20 MG TAB PO SCH (20:58)
[2019-05-03] MEDS: HYDRALAZINE HCL 25 MG TABLET PO SCH (20:58)
[2019-05-03] MEDS: OSELTAMIVIR PHOSPHATE 75 MG CAP PO SCH (20:58)
[2019-05-03] MEDS: BENZONATATE 100 MG CAPSULE PO SCH (20:58)
[2019-05-03] MEDS: PREGABALIN 25 MG CAP PO SCH (20:58)
[2019-05-03] MEDS: CARVEDILOL 25 MG TABLET PO SCH (20:59)
[2019-05-03] MEDS ORDERED: MONTELUKAST SODIUM 10 MG TAB PO SCH (21:00)
[2019-05-03] MEDS: SACUBITRIL PO SCH (21:00)
[2019-05-03] MEDS: VALSARTAN PO SCH (21:00)
[2019-05-03] MEDS ORDERED: ATORVASTATIN CALCIUM 10 MG TABLET PO SCH (21:00)
[2019-05-03 23:49] VITALS: BP 107/54
[2019-05-04 04:00] VITALS: BP 120/72
[2019-05-04] MEDS: IPRATROPIUM/ALBUTEROL SULFATE 3 ML SOLUTION IH SCH ×2 (06:05→10:48)
[2019-05-04 06:14] LABS: HEMOGLOBIN A1C 5.6 % (4.0-6.0)
[2019-05-04 06:16] LABS: HEMATOCRIT 32.1 % (36-48); MEAN CORPUSCULAR HEMOGLOBIN 29.2 pg (27.0-33.0); MEAN CORPUSCULAR HGB CONC 33.9 g/dL (32.0-36.0); MEAN CORPUSCULAR VOLUME 86.3 fL (79-99); PLATELET COUNT (AUTO) 305 K/uL (130-400); RED BLOOD CELL COUNT(AUTO) 3.72 MIL/uL (4.00-5.50); RED CELL DISTRIBUTION WIDTH 13.8 % (11.0-15.5); WHITE BLOOD COUNT (AUTO) 5.7 K/uL (4.8-10.8)
[2019-05-04 06:32] LABS: CREATININE 0.9 mg/dL (0.5-1.5); POTASSIUM 3.5 mmol/L (3.5-5.1); THYROID STIMULATING HORMONE 1.86 uIU/mL (0.36-3.74)
[2019-05-04] MEDS: INSULIN HUMULIN R 100 UNIT/ML 3ML SQ SCH ×3 (06:46→16:30)
[2019-05-04] MEDS: METOCLOPRAMIDE 5 MG TABLET PO SCH ×2 (06:52→12:21)
[2019-05-04] MEDS ORDERED: LEVOTHYROXINE 50 MCG TABLET PO SCH (07:30)
[2019-05-04 08:00] VITALS: BP 126/56
[2019-05-04] MEDS ORDERED: METFORMIN HCL 500 MG TAB.SR.24H PO SCH (08:00)
[2019-05-04] MEDS: FUROSEMIDE 20 MG TABLET PO SCH (08:01)
[2019-05-04] MEDS: CARVEDILOL 25 MG TABLET PO SCH (08:03)
[2019-05-04] MEDS: OSELTAMIVIR PHOSPHATE 75 MG CAP PO SCH (08:03)
[2019-05-04] MEDS: HYDRALAZINE HCL 25 MG TABLET PO SCH (08:03)
[2019-05-04] MEDS: FAMOTIDINE 20MG TAB 20 MG TAB PO SCH (08:03)
[2019-05-04] MEDS: PREGABALIN 25 MG CAP PO SCH (08:04)
[2019-05-04] MEDS: VALSARTAN PO SCH (08:11)
[2019-05-04] MEDS: SACUBITRIL PO SCH (08:11)
[2019-05-04] MEDS: BENZONATATE 100 MG CAPSULE PO SCH ×2 (08:11→14:01)
[2019-05-04] MEDS ORDERED: AMLODIPINE BESYLATE 5 MG TAB PO SCH (09:00)
[2019-05-04] MEDS ORDERED: ENOXAPARIN SODIUM 30 MG/0.3 ML SQ SCH (09:00)
[2019-05-04] MEDS ORDERED: DULOXETINE HCL 30 MG CAP PO SCH (09:00)
[2019-05-04] MEDS ORDERED: MULTIVITAMIN TABLET PO SCH (09:00)
[2019-05-04] MEDS ORDERED: OXYBUTYNIN 5 MG TAB.SR.24H PO SCH (09:00)
[2019-05-04] MEDS ORDERED: FUROSEMIDE 40 MG TABLET PO SCH (09:00)
[2019-05-04] MEDS ORDERED: SENNOSIDES 8.6 MG TABLET PO SCH (09:00)
[2019-05-04] MEDS ORDERED: FERROUS SULFATE 325 MG TABLET.DR PO SCH (09:00)
[2019-05-04] MEDS ORDERED: ASPIRIN 81MG TAB.CHEW PO SCH (09:00)
[2019-05-04] MEDS ORDERED: FISH OIL 1000 MG/CAP PO SCH (09:00)
[2019-05-04 09:11] LABS: BASOPHILS % (MANUAL) 2 % (0-2); EOSINOPHILS % (MANUAL) 5 % (1-6); LYMPHOCYTES % (MANUAL) 23 % (22-44); METAMYELOCYTES % 1 % (0-0); MONOCYTES % (MANUAL) 4 % (2-9); PLATELET MORPHOLOGY COMMENT ADEQUATE; SEGMENTED NEUTROPHILS % 65 % (40-70)
[2019-05-04 11:00] VITALS: BP 105/48
[2019-05-04] MEDS: CEFTRIAXONE SODIUM 1 GM IVP SCH (14:01)
--- NOTE | 2019-05-04 14:03 | NUR ---
DC PLAN VISITED WITH PATIENT. PATIENT LIVES WITH DAUGHTER. SEMI INDEPENDENT ABLE TO DO SOME ADL'S. PATIENT HAS PROVIDER DAILY NOT SURE ON THE HRS. USES A WALKER. FEELS SAFE TO RETURN HOME.
[2019-05-04 16:00] VITALS: BP 107/49
[2019-05-04] MEDS ORDERED: NITR100C4 PO (16:53)
[2019-05-04] MEDS ORDERED: OSEL75 PO (16:56)
--- NOTE | 2019-05-04 17:40 | NUR ---
patient and daughter given discharge instruction and verbalized understanding , iv removed with catheter intact and site dressed. removed medication and follow-up appointment with pcp in 1-3 days , telemetry monitoring unit notified of patient discharge and unit removed , no questions or concerns at this time. patient left via wheelchair to lobby and left with daughter for home.
== END 2019-05-04 18:49 | disposition home or self-care (01) ==
LOC: EDH 10:22 → INTOOBSV 13:00 → EDHIP 13:00 → 4CH 14:30
PROVIDERS: ADMIT Internal Medicine Critical Care Medicine; ATTEND Internal Medicine Critical Care Medicine
DX: J09.X2 Influenza due to identified novel influenza A virus with other respiratory manifestations (principal); I50.9 Heart failure, unspecified; N39.0 Urinary tract infection, site not specified; R94.31 Abnormal electrocardiogram [ECG] [EKG]; I69.351 Hemiplegia and hemiparesis following cerebral infarction affecting right dominant side; J45.909 Unspecified asthma, uncomplicated; E11.9 Type 2 diabetes mellitus without complications; I25.2 Old myocardial infarction; Z91.048 Other nonmedicinal substance allergy status
CPT/HCPCS: 36415 ×2; 71045 ×2; 80048; 80053; 81001; 82550; 82948 ×5; 83036; 83605 ×2; 83880; 84443; 84484; 85025 ×2; 85610; 85730; 87040 ×2; 87077; 87088; 87186; 87804 ×2; 93005; 94640 ×4; 94664; 96372; 96374; 96376; 99291; G0378 ×3; J0456; J0696 ×2; J1650; J1940

== ENCOUNTER → 2021-12-16 | Outpatient (CLI) | payer OTHER, MEDICARE ==
[~2021-12-16] MED LIST changes: +AMLO-257 PO; -ASPI-1012 PO; +DIGO125T71 PO; -DIGO125T87 PO; +DULO30CA52 PO; +HYDR-4154 PO; +MONT-39 PO; -MONT10TA24 PO; +MULT-1038 PO; -MULT-1203 PO; +NITR100C4 PO; +OMEG-148 PO; +OSEL75 PO; +OXYB-66 PO; -OXYB5TAB4 PO; -PANT40TA25 PO; +SENN8.6T20 PO
[2021-12-16 12:39] LABS: CREATININE 1.7 mg/dL (0.5-1.5); POTASSIUM 4.4 mmol/L (3.5-5.1)
== END | disposition home or self-care (01) ==
LOC: LAB 09:08
PROVIDERS: ATTEND Internal Medicine Cardiovascular Disease
DX: I10 Essential (primary) hypertension (principal)
CPT/HCPCS: 36415; 80048

== ENCOUNTER → 2022-01-04 | Outpatient (CLI) | payer OTHER, MEDICARE ==
[~2022-01-04] MED LIST changes: +ALEN70TA80 PO; +FURO40TA5 PO; +METO5TAB7 PO; +SACU1TAB7 PO
[2022-01-04 13:06] LABS: CREATININE 2.1 mg/dL (0.5-1.5); POTASSIUM 4.8 mmol/L (3.5-5.1)
== END | disposition home or self-care (01) ==
LOC: LAB 10:30
PROVIDERS: ATTEND Internal Medicine Cardiovascular Disease
DX: I10 Essential (primary) hypertension (principal); I42.0 Dilated cardiomyopathy
CPT/HCPCS: 36415; 80048; 83880

== ENCOUNTER → 2022-03-29 | Outpatient (CLI) | payer OTHER, MEDICARE ==
[~2022-03-29] MED LIST changes: -AMLO-257 PO; +ATOR10 PO; +BALS5OIN TP; -CARV25TA PO; +CARV6.2579 PO; +CLOP75TA14 PO; -FERR-82 PO; -FURO20TA4 PO; -FURO40TA5 PO; -HYDR-2132 PO; -HYDR-4154 PO; +LEVE500L PO; +MERO500V23 IVP; -METF-444 PO; +NIFE-40 PO; -NITR100C4 PO; -OMEG-148 PO; -OSEL75 PO; -OXYB-66 PO; -PRAV40TA3 PO; -PREG50 PO; -SENN8.6T20 PO; -TRAM-355 PO
[2022-03-29 13:01] LABS: CREATININE 1.6 mg/dL (0.5-1.5); POTASSIUM 4.2 mmol/L (3.5-5.1)
== END | disposition home or self-care (01) ==
LOC: LAB 11:45
PROVIDERS: ATTEND Internal Medicine Cardiovascular Disease
DX: I10 Essential (primary) hypertension (principal); I42.0 Dilated cardiomyopathy
CPT/HCPCS: 36415; 80048; 83880

== ENCOUNTER → 2022-05-17 | Outpatient (CLI) | payer OTHER, MEDICARE | END | disposition home or self-care (01) | LOC: RAH 13:54 | PROVIDERS: ATTEND Family Medicine | DX: J18.9 Pneumonia, unspecified organism (principal) | CPT/HCPCS: 71046 ==